=== PATIENT | female | born 1935 | race Caucasian/White ===

== ENCOUNTER 2018-11-25 09:25 | Day surgery (SDC) | payer OTHER, MEDICARE ==
[2018-11-24 13:25] VITALS: BMI 34.4
[~2018-11-25 09:25] MED LIST: ACETAMINOPHEN 325 MG TABLET (FP) PO PRN; BUPIVACAINE HCL/PF 0.75% 10 ML VIAL NR ONE; CYCLOPENTOLATE HCL 1% OPHTH SOLN 2 ML BOTTLE OS ONE; LIDOCAINE HCL/PF 2% SDV 5ML VIAL INF ONE; OFLOXACIN 0.3% OPHTHALMIC SOLUTION 5 ML BOTTLE OP SCH; PHENYLEPHRINE 2.5% OPHTH SOLN 15 ML BOTTLE OS ONE; POVIDONE-IODINE 5% OPHTHALMIC PREP 30 ML SOLUTION OS ONE; TROPICAMIDE 1% OPHTH SOLN 15 ML BOTTLE OS ONE
[2018-11-25] MEDS ORDERED: OFLOXACIN 0.3% OPHTHALMIC SOLUTION 5 ML BOTTLE ONE (10:15)
[2018-11-25] MEDS ORDERED: CYCLOPENTOLATE HCL 1% OPHTH SOLN 2 ML BOTTLE ONE (10:25)
[2018-11-25] MEDS ORDERED: TROPICAMIDE 1% OPHTH SOLN 15 ML BOTTLE ONE (10:25)
[2018-11-25] MEDS ORDERED: TRIAMCINOLONE ACET 40MG/1ML VIAL ONE (10:26)
[2018-11-25] MEDS ORDERED: OFLOXACIN 0.3% OPHTHALMIC SOLUTION 5 ML BOTTLE OP ONE ×2 (10:30→10:39)
[2018-11-25] MEDS ORDERED: TRYPAN BLUE 0.5 ML DISP.SYRIN ONE (10:58)
[2018-11-25] MEDS ORDERED: LIDOCAINE HCL/PF 2% SDV 5ML VIAL INF ONE (11:21)
[2018-11-25] MEDS ORDERED: BUPIVACAINE HCL/PF 0.75% 10 ML VIAL NR ONE (11:21)
[2018-11-25] MEDS ORDERED: POVIDONE-IODINE 5% OPHTHALMIC PREP 30 ML SOLUTION OS ONE (11:22)
[2018-11-25] MEDS ORDERED: CHONDROITIN SU A/HYALUR SOD 1 KIT IO ONE (11:30)
[2018-11-25] MEDS ORDERED: TRYPAN BLUE 0.5 ML DISP.SYRIN IO ONE (11:30)
[2018-11-25] MEDS ORDERED: BSS (NA/CA/MG/K) BALANCED SALT SOLUTION OPHTH SOLN 15 ML BOTTLE OS ONE (11:30)
[2018-11-25] MEDS ORDERED: LIDOCAINE HCL 1% PRESERVATIVE FREE - 30ML VIAL IO ONE (11:30)
[2018-11-25] MEDS ORDERED: ACETYLCHOLINE 1:100 INTRA-OCUL 20 MG/2 ML KIT IO ONE (11:41)
[2018-11-25] MEDS ORDERED: EPINEPHrine/PF 1 MG/1 ML (1:1,000) AMPULE SQ ONE (11:56)
[2018-11-25] MEDS ORDERED: CYCLOPENTOLATE HCL 1% OPHTH SOLN 2 ML BOTTLE OS ONE (12:24)
[2018-11-25] MEDS ORDERED: PHENYLEPHRINE 2.5% OPHTH SOLN 15 ML BOTTLE OS ONE (12:24)
[2018-11-25] MEDS ORDERED: TROPICAMIDE 1% OPHTH SOLN 15 ML BOTTLE OS ONE (12:24)
--- NOTE | 2018-11-25 14:36 | OP ---
DATE OF OPERATION: DATE OF DICTATION: 11/25/2018 PREOPERATIVE DIAGNOSIS: Endothelial corneal dystrophy. POSTOPERATIVE DIAGNOSIS: Endothelial corneal dystrophy. PROCEDURE: Descemet stripping, automated endothelial keratoplasty, left eye. ANESTHESIA: Peribulbar/modified Van Lint/MAC. COMPLICATIONS: None. PROCEDURE: The patient was brought to the operating room and correctly identified, along with the operative site. The corneal transplant tissue was visually inspected. The cornea tissue and the transport media were noted to be clear. The pre and post cut parameters accompanying the corneal tissue were also reviewed. The patient was then given a peribulbar block under sedation with 5 mL of a 1:1 mixture of 2% lidocaine and 0.75% bupivacaine. One mL of the same mixture was given as a modified Van Lint eyelid block. The eye was then prepped and draped in the usual sterile fashion including 5% Betadine solution in the conjunctival sac and an eyelid drape. An eyelid speculum was then placed into the left eye. An 8.0-mm corneal marvin was placed and the corneal diameters measured 11 mm vertically and horizontally. An 8.0-mm Anu trephine was then used to create the donor cornea. The cornea tissue was inspected and covered entirely with BSS Plus. Attention was then placed back to the patient's cornea and three paracentesis ports were created. Using a reverse Sinskey hook, the Descemet membrane was scored just inside the 8.0-mm corneal marking. The trypan blue was injected to stain Descemet membrane and Viscoelastic was injected to inflate the anterior chamber. A temporal clear corneal wound was created. Descemet membrane was then fully removed using a combination of the reverse Sinskey hook as well as a Rikki scraper. The freed descemets' membrane was then completely removed from the eye and sent for histopathologic evaluation. The Viscoelastic was then irrigated and aspirated from the eye. While maintaining the irrigation port inside the eye, trypan blue was injected into the anterior chamber dry and then removed with irrigation/asipration. No residual descemets' membrane tags were noted. With the irrigation activated inside the eye, two full-thickness corneal venting incisions were then made. An anterior chamber maintainer was then used through the superior paracentesis and the temporal clear corneal wound enlarged to 3.5 mm. The donor cornea was then prepared and placed on a mini-Busin glide and stained with trypan blue. Viscoat was used to protect the endothelial surface. Using a Busin forceps through the nasal paracentesis port, the tissue was then pulled into the eye atraumatically. A single 10-0 nylon suture was placed in the temporal clear cornea wound and the anterior chamber was then filled with BSS. A second suture was placed in the superior paracentesis. A small director of dance bubble was placed beneath the donor graft, and the graft centered with a combination external manipulation and internal manipulation with the reverse sinskey hook. A one-hundred percent air fill was then achieved by injecting air through a 30-gauge needle. At this point, the donor cornea was noted to be slightly inferior-nasally displaced. The graft was again repositioned with the reverse sinskey and air was then again injected with the 30 guage needle. The graft was again noted to decenter slightly, but there was good coverage over the pupil. The eye was then observed for 20 minutes with a full anterior chamber air fill. The venting incisions were opened with the microsharp blade, no interface fluid was noted. A micah sweeper was used externally, massaging the cornea from center to peripheral and the venting incision were opened slightly again. Topical tropicamide 1%, cyclogyl 1%, and phenylephrine 2.5% were given every 3 minutes for a total of 5 doses. After a full 20 minutes, the cornea was inspected and noted to be in the same position that it had been left at. Some of the air was removed and replaced with BSS until approximately a 60% air fill was left. The donor cornea was still noted to be in the same position and did not move with the manipulation. All wounds were tested and found to be watertight. No further sutures were required. Topical vancomycin, Kenalog, and a drop of Betadine were given, the eye patched and shielded, and the patient discharged from the operating room in a stable condition. ANCA GREEN M.D. [id number] MTDD
[2018-11-25 14:49] VITALS: TEMP 97.5
[2018-11-25 16:07] VITALS: BP 146/66; PULSE 72
--- NOTE | 2018-11-26 17:28 | PATH ---
Surgical Pathology Report Patient Name: UTE RUI[facility]. Rec. #: [id number] /Age/Gender: 1935 (Age: 83) / F Account: [id number] Location: [facility] Taken: 11/25/2018 Received: 11/25/2018 Reported: 11/26/2018 Physicians: Isaac Wilks M.D. 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 Electronically Signed Jayne Neely M.D. Gross Description Received in formalin, labeled "Descemet's membrane" is a white, thin membranous soft tissue measuring 0.2 cm in greatest dimension. The specimen is submitted in toto in one cassette. GERMÁN/11/25/2018 flaco/11/25/2018
== END 2018-11-25 16:10 | disposition home or self-care (01) ==
LOC: JASU-SURG 09:25
PROVIDERS: ATTEND Ophthalmology
PROC: 08R9XKZ Replacement of Left Cornea with Nonautologous Tissue Substitute, External Approach (ICD-10-PCS; principal; 2018-11-25 11:00)
DX: H18.51 Endothelial corneal dystrophy (principal)
CPT/HCPCS: 87070; 88304-TC; 94760